=== PATIENT | male | born 1935 | race Caucasian/White ===

== ENCOUNTER 2022-01-22 10:43 | Inpatient (IN) ==
[2022-01-22 11:53] LABS: VBG HCO3 17 mEq/L (21-27); VBG PCO2 30 mmHg (41-51); VBG PH 7.36 pH Units (7.32-7.42); VBG PO2 151 mmHg (25-50)
[2022-01-22 11:58] LABS: Prothrombin Time 22.6 Seconds (9.4-12.1)
[2022-01-22 12:14] LABS: Acetaminophen < 10 mcg/mL (10-20); Alanine Aminotransferase 63 Units/L (7-52); Albumin 3.7 g/dL (3.5-5.7); Albumin/Globulin Ratio 1.5 (1.1-2.2); Alkaline Phosphatase 57 Units/L (34-104); Aspartate Amino Transferase 103 Units/L (13-39); BUN/Creatinine Ratio 28 (6-26); Bilirubin,Total 0.7 mg/dL (0.3-1.0); Blood Urea Nitrogen 54 mg/dL (8-23); Calcium 8.4 mg/dL (8.6-10.3); Carbon Dioxide 18 mEq/L (23-29); Chloride 103 mEq/L (98-107); Creatine Kinase 1148 Units/L (30-223); Ethanol < 10 mg/dL (Less than 10); Globulin 2.4 g/dL (2.4-3.5); Glucose 130 mg/dL (70-105); Magnesium 1.6 mg/dL (1.6-2.6); Osmolality,Calculated 293 (280-300); Salicylate < 2.5 mg/dL (15.0-30.0); Sodium 133 mEq/L (136-145); Total Protein 6.1 g/dL (6.4-8.9); Troponin I < 0.03 ng/mL (< 0.04); eGFR For African Americans 40 (> 60); eGFR For Non-African Americans 33 (> 60)
[2022-01-22 12:36] LABS: Adenovirus Not Detected (Not Detect); Bordetella Pertussis Not Detected (Not Detect); Chlamydophila pneumoniae Not Detected (Not Detect); Coronavirus 229E Not Detected (Not Detect); Coronavirus HKU1 DETECTED (Not Detect); Coronavirus NL63 Not Detected (Not Detect); Coronavirus OC43 Not Detected (Not Detect); Human Metapneumovirus Not Detected (Not Detect); Human Rhinovirus/Enterovirus Not Detected (Not Detect); Influenza A Subtype 2009 H1 Not Detected (Not Detect); Influenza B Not Detected (Not Detect); Mycoplasma pneumoniae Not Detected (Not Detect); Parainfluenza Virus 1 Not Detected (Not Detect); Parainfluenza Virus 2 Not Detected (Not Detect); Parainfluenza Virus 3 Not Detected (Not Detect); Parainfluenza Virus 4 Not Detected (Not Detect); Respiratory Syncytial Virus Not Detected (Not Detect); SARS-CoV-2 Not Detected (Not Detect)
[2022-01-22] MEDS ORDERED: 0.9 % Sodium Chloride 1,000 ML IVC ONE (12:56)
[2022-01-22] MEDS ORDERED: Acetaminophen 325 MG TABLET PO PRN (13:08)
[2022-01-22] MEDS ORDERED: Naloxone 0.4 MG/ML INJ IVP PRN (13:08)
[2022-01-22] MEDS ORDERED: Ondansetron 4 MG/2 ML VIAL IVP PRN (13:08)
[2022-01-22] MEDS ORDERED: *HR* Dextrose 50 % in Water (Syg) 50 ML SYRINGE IVP PRN (13:13)
[2022-01-22] MEDS ORDERED: D5% in Water 1,000 ML IVC PRN (13:13)
[2022-01-22] MEDS ORDERED: Dextrose 4 GM Chewable Tablets PO PRN ×2 (13:13)
[2022-01-22 14:07] LABS: Hematocrit 37.3 % (37.5-50.1); Immature Platelets 4.3 % (1.1-6.1); Mean Corpuscular HGB Conc 32.2 g/dL (31.6-35.5); Mean Corpuscular Hemoglobin 28.7 pg (28.0-33.3); Mean Corpuscular Volume 89.2 fL (83.0-100.0); Mean Platelet Volume 10.9 fL (9.4-12.4); Red Blood Count 4.18 M/mcL (4.19-5.50); Red Cell Distribution Width 14.1 % (11.5-14.5); White Blood Count 2.8 K/mcL (4.3-11.1)
[2022-01-22 14:18] LABS: Platelet Count 58 K/mcL (140-400)
[2022-01-22 14:22] LABS: Amorphous Sediment,Urine Few per hpf (None-Few); Amphetamine Screen,Urine Negative ng/mL (Cutoff=1000); Bacteria,Urine Few per hpf (None-Few); Barbiturate Screen,Urine Negative ng/mL (Cutoff=200); Benzodiazepines Screen,Urine Negative ng/mL (Cutoff=200); Bilirubin,Urine Negative (Negative); Blood,Urine Small (Negative); Cannabinoid Screen,Urine Negative ng/mL (Cutoff = 50); Clarity,Urine Turbid (Clear); Cocaine Screen,Urine Negative ng/mL (Cutoff= 300); Color,Urine Yellow (Yellow); Glucose,Urine (UA) Normal (Normal); Ketones,Urine Negative (Negative); Leukocyte Esterase,Urine Negative (Negative); Mucus,Urine Few per lpf (None-Few); Nitrite,Urine Negative (Negative); Opiate Screen,Urine Negative ng/mL (Cutoff=300); PH,Urine 5.5 pH Units (5.0-8.0); Phencyclidine Screen,Urine Negative ng/mL (Cutoff=25); Protein,Urine 70 mg/dL (Neg-Trace); RBC,Urine 0-3 per hpf (0-3); Specific Gravity,Urine 1.018 (1.010-1.025); Squamous Epithelial Cell,Urine Few per hpf (None-Few); Urobilinogen,Urine Normal (Normal)
[2022-01-22 14:49] LABS: Lymphocytes # 0.1 K/mcL (0.6-4.6); Neutrophils # 2.6 K/mcL (1.6-8.9)
[2022-01-22 14:50] LABS: Platelet Estimate Decreased (Normal)
[2022-01-22 14:57] LABS: Estimated Average Glucose 298 mg/dl
[2022-01-22] MEDS: 0.9 % Sodium Chloride 1,000 ML IVC SCH ×2 (16:06→19:31)
[2022-01-22] MEDS: Insulin LISPRO 300 UNITS/3 ML VIAL SUBQ SCH ×2 (16:40→20:28)
[2022-01-22] MEDS: carvediloL 25 MG TABLET PO SCH (16:47)
[2022-01-23 01:30] LABS: Basophils % 0.4 %
[2022-01-23 01:31] LABS: Hemoglobin 10.8 g/dL (12.9-16.9); Immature Granulocytes % 1.7 % (0-4); Immature Platelets 3.6 % (1.1-6.1); Lymphocytes # 0.2 K/mcL (0.6-4.6); Lymphocytes % 8.5 %; Mean Corpuscular HGB Conc 33.8 g/dL (31.6-35.5); Mean Corpuscular Hemoglobin 29.3 pg (28.0-33.3); Mean Corpuscular Volume 86.7 fL (83.0-100.0); Mean Platelet Volume 10.8 fL (9.4-12.4); Monocytes # 0.1 K/mcL (0.0-1.3); Monocytes % 3.4 %; Red Blood Count 3.69 M/mcL (4.19-5.50); Red Cell Distribution Width 13.8 % (11.5-14.5); White Blood Count 2.4 K/mcL (4.3-11.1)
[2022-01-23 01:47] LABS: Calcium 7.7 mg/dL (8.6-10.3); Chol/HDL Ratio 2.3 (0-4.9); Magnesium 1.6 mg/dL (1.6-2.6); Potassium 3.3 mEq/L (3.5-5.1)
[2022-01-23 01:49] LABS: Albumin 3.1 g/dL (3.5-5.7); Albumin/Globulin Ratio 1.5 (1.1-2.2); Bilirubin,Total 0.6 mg/dL (0.3-1.0); Calcium 7.7 mg/dL (8.6-10.3); Globulin 2.1 g/dL (2.4-3.5); Potassium 3.3 mEq/L (3.5-5.1); Total Protein 5.2 g/dL (6.4-8.9)
[2022-01-23 01:54] LABS: Neutrophils # 2.1 K/mcL (1.6-8.9); Platelet Count 50 K/mcL (140-400); Platelet Estimate Decreased (Normal)
[2022-01-23] MEDS ORDERED: *HR* Enoxaparin 40 MG/0.4 ML SYRINGE SQ SCH (06:00)
[2022-01-23] MEDS: Insulin LISPRO 300 UNITS/3 ML VIAL SUBQ SCH ×4 (07:23→20:12)
[2022-01-23] MEDS ORDERED: NON-FORMULARY MEDICATION 1 EACH EACH (Ezetimibe [Zetia] 10 MG Tablet) PO SCH (09:00)
[2022-01-23 09:11] LABS: Hematocrit 32.9 % (37.5-50.1); Hemoglobin 11.3 g/dL (12.9-16.9)
[2022-01-23] MEDS: carvediloL 25 MG TABLET PO SCH ×2 (10:09→17:15)
[2022-01-23] MEDS ORDERED: Potassium Chloride Elixir 20 MEQ/15 ML UDC PO ONE (11:45)
[2022-01-23] MEDS: Ringers Solution, Lactated 1,000 ML IVC SCH (13:56)
[2022-01-23] MEDS ORDERED: Azithromycin 250 MG TABLET PO ONE (16:01)
[2022-01-23] MEDS ORDERED: cefTRIAXone 1,000 MG in 0.9 % Sodium Chloride Mini Bag 100 ML IVPB SCH ×2 (17:00→20:00)
[2022-01-23] MEDS: Finasteride 5 MG TABLET PO SCH (17:15)
[2022-01-23 18:56] LABS: Hematocrit 28.4 % (37.5-50.1)
[2022-01-23 18:58] LABS: Hemoglobin 9.4 g/dL (12.9-16.9)
[2022-01-24] MEDS: Ringers Solution, Lactated 1,000 ML IVC SCH (03:39)
[2022-01-24 04:43] LABS: Hematocrit 26.6 % (37.5-50.1); Mean Corpuscular Volume 87.2 fL (83.0-100.0); Red Blood Count 3.05 M/mcL (4.19-5.50)
[2022-01-24 04:44] LABS: Immature Platelets 6.2 % (1.1-6.1); Lymphocytes # 0.5 K/mcL (0.6-4.6); Lymphocytes % 15.6 %; Mean Corpuscular HGB Conc 33.8 g/dL (31.6-35.5); Mean Corpuscular Hemoglobin 29.5 pg (28.0-33.3); Mean Platelet Volume 11.4 fL (9.4-12.4); Monocytes # 0.3 K/mcL (0.0-1.3); Monocytes % 8.6 %; Segmented Neutrophils % 73.8 %; White Blood Count 3.2 K/mcL (4.3-11.1)
[2022-01-24 04:46] LABS: INR 2.3; Prothrombin Time 25.7 Seconds (9.4-12.1)
[2022-01-24 04:57] LABS: Albumin 2.7 g/dL (3.5-5.7); Albumin/Globulin Ratio 1.4 (1.1-2.2); Bilirubin,Direct 0.1 mg/dL (0.0-0.2); Bilirubin,Indirect 0.3 mg/dL (0.0-1.0); Bilirubin,Total 0.4 mg/dL (0.3-1.0); Total Protein 4.7 g/dL (6.4-8.9)
[2022-01-24 04:58] LABS: Calcium 7.4 mg/dL (8.6-10.3); Magnesium 1.7 mg/dL (1.6-2.6); Potassium 3.6 mEq/L (3.5-5.1)
[2022-01-24 05:13] LABS: Neutrophils # 2.4 K/mcL (1.6-8.9); Platelet Count 50 K/mcL (140-400)
[2022-01-24 06:09] LABS: Platelet Estimate Decreased (Normal)
[2022-01-24] MEDS ORDERED: Ringers Solution, Lactated 1,000 ML IVC SCH (07:40)
[2022-01-24] MEDS: Finasteride 5 MG TABLET PO SCH (07:58)
[2022-01-24] MEDS: Insulin LISPRO 300 UNITS/3 ML VIAL SUBQ SCH (07:59)
[2022-01-24] MEDS: carvediloL 25 MG TABLET PO SCH (07:59)
[2022-01-24 10:59] VITALS: BP 100/62; PULSE 74; TEMP 99.5; O2SAT 91
[2022-01-24] MEDS ORDERED: Azithromycin 250 MG TABLET PO SCH (16:15)
== END 2022-01-24 11:09 | disposition expired | DRG 682 ==
LOC: 2ANU 10:43 → EMEROOARM 10:43 → 2ANU 15:45 → SUATTDRO 16:12
PROVIDERS: ADMIT Pharmacist; ATTEND Internal Medicine